=== PATIENT | male | born 1970 | race Two or more races ===

== ENCOUNTER 2019-04-30 19:10 | Emergency (ER) | payer MEDICAID ==
[~2019-04-30] VITALS: Ht 182.9 cm; Wt 136.1 kg
[2019-04-30 19:19] VITALS: BP 138/87
== END 2019-04-30 20:27 | disposition home or self-care (01) ==
LOC: ED 20:21
DX: S61.216D Laceration without foreign body of right little finger without damage to nail, subsequent encounter (principal); I10 Essential (primary) hypertension; X58.XXXD Exposure to other specified factors, subsequent encounter
CPT/HCPCS: 99283